=== PATIENT | female | born 1940 | race Caucasian/White ===

== ENCOUNTER 2016-11-30 13:00 | Emergency (ER) | payer MEDICARE, OTHER ==
[~2016-11-30 13:00] MED LIST: ACCUPRIL40 M1 PO; ALEVE220 MG; BIPAP; CHLORTHALIDONE25 M1 PO; CYCLOBENZAPRINE5 M1 PO; EFFEXOR XR75 M1 PO; EFFEXOR75 MG; FISH OIL CONCE1 EAC1 PO; GINKGO BILOBA60 M3 PO; GINKO BILOBA PO; HYDROCODONE/APA1 CAP; LIPITOR40 M1 PO; MAGNESIUM POTASSIUM; MOBIC15 M2 PO; MULTIVITAMINS1 EAC6 PO; NEXIUM40 M1 PO; NEXIUM40 MG; NIACIN500 MG; NORCO 5/325 TAB1 TAB PO; OMEGA 31 CAP; PERCOCET 5-3251 EACH PO; QUINAPRIL HCL40 MG; TOPROL XL200 M1 PO; TOPROL XL200 MG; ULTRAM50 M1 PO; ZOCOR10 MG PO; [UNRECOGNIZED DRUG - OTHER] PO
[2016-11-30] MEDS ORDERED: CALCIUM CARBON600 M2 PO (13:29)
[2016-11-30] MEDS ORDERED: VITAMIN D31000 UNI3 PO (13:29)
[2016-11-30 14:02] LABS: BASO % 0.2 % (0-2); EOS % 2.7 % (0-7); EOSINOPHIL ABSOLUTE COUNT 0.2 tho/cmm (0.0-0.7); HCT-HEMATOCRIT 47.3 % (34.0-49.0); HGB-HEMOGLOBIN 16.5 gm/dl (12.0-15.5); IMMATURE GRANULOCYTES ABSOLUTE 0.01 tho/cmm (0-0.03); IMMATURE GRANULOCYTES PERCENT 0.2 % (0-0.3); LYMPH % 17.6 % (20-45); LYMPH ABSOLUTE COUNT 1.1 tho/cmm (0.8-4.5); MCH (MEAN CORPUSCULAR HGB) 33.5 pg (28.0-32.0); MCHC MEAN CORPUSCULAR HGB CONC 34.9 % (32.0-36.0); MCV (MEAN CELL VOLUME) 96.1 fl (82.0-96.0); MEAN PLATELET VOLUME 10.2 cmc (9.4-12.4); MONO % 8.2 % (0-12); MONOCYTE ABSOLUTE COUNT 0.5 tho/cmm (0.0-1.2); NEUTROPHIL ABSOLUTE COUNT 4.4 tho/cmm (1.6-8.0); NEUTROPHIL-AUTOMATED 4.4 tho/cmm (1.6-8.0); NEUTROPHILS % 71.1 % (40-80); PLATELET COUNT 185 tho/cmm (150-450); RED BLOOD COUNT 4.92 mil/cmm (4.00-5.20); RED CELL DISTRIBUTION WIDTH 12.3 % (12.4-16.4); WHITE BLOOD COUNT 6.2 tho/cmm (4.0-10.0)
[2016-11-30 14:13] LABS: URINE BILIRUBIN SMALL (NEG); URINE BLOOD SMALL (NEG); URINE GLUCOSE (UA) NEGATIVE (NEG); URINE KETONE SMALL (NEG); URINE LEUKOCYTE ESTERASE POSITIVE (NEG); URINE NITRITE NEGATIVE (NEG); URINE PROTEIN MODERATE (NEG)
[2016-11-30 14:14] LABS: URINE APPEARANCE CLOUDY; URINE COLOR YELLOW
[2016-11-30 14:21] LABS: ALB/GLOB RATIO 1.2 (0.8-2.0); ALKALINE PHOSPHATASE 94 U/L (33-138); ALT/SGPT 36 U/L (12-78); ANION GAP 13 mmol/L (0-20); AST/SGOT 28 U/L (10-40); BILIRUBIN,TOTAL 0.7 mg/dl (0-1.5); BLOOD UREA NITROGEN 21 mg/dl (6-24); CALCIUM 9.2 mg/dl (8.5-10.5); CARBON DIOXIDE-VENOUS 29 mmol/L (22-32); CHLORIDE 104 mmol/l (96-110); GLUCOSE 120 mg/dL (70-110); LIPASE 126 U/L (73-393); SODIUM 142 mmol/L (135-145); eGFR VALUE FOR BLACK 64 mL/Min
[2016-11-30 14:24] LABS: URINE RBC RARE /[HPF] (0-5)
[2016-11-30 14:25] LABS: URINE AMORPHOUS 1+; URINE BACTERIA 2+
[2016-11-30] MEDS ORDERED: KEFLEX500 M4 PO (15:24)
[2016-11-30] MEDS ORDERED: ZOFRAN ODT4 MG PO (15:24)
== END 2016-11-30 16:52 ==
LOC: EDMED 13:00
PROVIDERS: Emergency Medicine
DX: N39.0 Urinary tract infection, site not specified (principal); E86.0 Dehydration; E78.5 Hyperlipidemia, unspecified; K21.9 Gastro-esophageal reflux disease without esophagitis; Z90.710 Acquired absence of both cervix and uterus; Z90.49 Acquired absence of other specified parts of digestive tract; Z98.890 Other specified postprocedural states; Z79.899 Other long term (current) drug therapy
CPT/HCPCS: J0696; J2405; J7030; Q9967